=== PATIENT | female | born 2000 | race Caucasian/White ===

== ENCOUNTER 2022-12-15 14:02 | Outpatient (CLI) | payer OTHER, SELFPAY ==
--- NOTE | 2022-12-15 14:00 | CRLHL7_ITS ---
For Patients: As a result of the Century Cures Act, medical imaging exams and procedure reports are released immediately into your electronic medical record. You may view this report before your referring provider. If you have questions, please contact your health care provider. INDICATION: Third trimester scan, evaluate growth. UTERINE SIZE DISCREPANCY COMPARISON: none TECHNIQUE: Real time fonseca scale imaging of the fetus was performed. FINDINGS: Sonographic imaging demonstrates a single living intrauterine gestation. Fetus demonstrates a regular cardiac rate of 144 beats per minute. Fetus has a vertex position. The placenta lies posterior. Amniotic fluid volume appears normal and there is a single deepest vertical pocket: 3.3 cm. The estimated weight is 1867gm which lies at the 65th %. BPD 54th percentile. HC 38th percentile. AC 85th percentile. FL 29th percentile. The HC/AC ratio measures 1.02 range (0.96-1.15). IMPRESSION: Sonographic gestational age 31 weeks 5 days and sonographic due date 02/11/2023. Good correlation with dates. Estimated weight 65th percentile. Abdominal circumference 85th percentile. Dictated by Ibrahima Aquino MD @ 12/16/2022 11:01:56 AM (Electronically Signed)
== END 2022-12-15 14:03 | disposition home or self-care (01) ==
LOC: US 14:03
PROVIDERS: Visit Provider Registered Nurse
DX: O99.213 Obesity complicating pregnancy, third trimester (principal); Z3A.31 31 weeks gestation of pregnancy
CPT/HCPCS: 76816

== ENCOUNTER 2023-01-07 14:09 | Outpatient (CLI) | payer OTHER, SELFPAY | END 2023-01-07 14:10 | disposition home or self-care (01) | LOC: NFLDREF 14:10 | PROVIDERS: Visit Provider Obstetrics & Gynecology | DX: F19.91 Other psychoactive substance use, unspecified, in remission (principal) | CPT/HCPCS: 80306 ==

== ENCOUNTER 2023-01-16 15:14 | Outpatient (CLI) | payer OTHER, SELFPAY ==
[2023-01-17 17:46] LABS: Strep B DNA Probe POSITIVE (Negative)
[2023-01-17 17:47] LABS: Strep B Pen/Amox Allergy No
== END 2023-01-16 15:15 | disposition home or self-care (01) ==
LOC: NFLDREF 15:14
PROVIDERS: Visit Provider Obstetrics & Gynecology
DX: O99.213 Obesity complicating pregnancy, third trimester (principal); Z3A.35 35 weeks gestation of pregnancy
CPT/HCPCS: 76816; 76819; 80175; 87081; 87653

== ENCOUNTER 2023-02-09 10:18 | Inpatient (IN) | payer OTHER, SELFPAY ==
[2023-02-09] VITALS (29 sets, daily range): BP systolic 94–125; BP diastolic 47–74; PULSE 48–96; RESP 16–20; TEMP 36.4–37; O2SAT 95–100
[2023-02-09 11:49] LABS: Basophils Absolute Auto 0.03 K/uL (0.00-0.30); Basophils Percent Auto 0.4 % (0.0-3.0); Eosinophils Percent Auto 1.2 % (0.0-7.0); Hematocrit 39.3 % (33.0-51.0); Hemoglobin* 13.5 gm/dL (12.0-16.0); Immature Granulocytes Abs Auto 0.01 K/uL (0.00-0.30); Immature Granulocytes Pct Auto 0.1 %; Lymphocytes Percent Auto 17.6 % (20-44); Mean Corpuscular HGB Conc 34 gm/dL (32-36); Mean Corpuscular Hemoglobin 30 pg (26-34); Mean Corpuscular Volume 88 fL (80-100); Monocytes Percent Auto 6.5 % (0.0-11.0); Neutrophils Percent Auto 74.2 % (42.0-72.0); Platelet Count* 282 K/uL (140-440); RDW Coefficient of Variation % 12.7 % (11.5-15.5); Red Blood Count 4.47 m/uL (4.00-5.20); White Blood Count* 8.48 K/uL (4.50-11.00)
[2023-02-09 11:51] LABS: Slide Review Reflex No
[2023-02-09] MEDS: ONDANSETRON 2 MG/ML inj 4 MG IV (12:17)
[2023-02-09] MEDS: CEFAZOLIN 1 GM inj 3 GM IVP (12:29)
--- NOTE | 2023-02-09 12:49 | P.NB_ITS ---
Nerve Block Nerve Block Time Seen by Provider: 13:53 Date Seen: 02/09/23 Type of block requested by surgeon for post-operative analgesia: TAP Side: bilateral Time out performed: Yes Verification of patient name: Yes Verification of date of : Yes Site marking: site marked Name of person performing procedure: Franco Continuous monitoring Was continuous monitoring of O2 sat, B/P, cafeteria monitor, recorded every 15 minutes?: Yes Procedure Checklist: sterile prep, needles and gloves Ultrasound guided. Images saved: Yes Medications given in 5ml increments after negative aspiration: Marcaine %: 0.25 mL: 30 Needle gauge: 20 and Exparel mL: 10 Patient tolerated procedure well: Yes Additional comments: Needle noted adjacent to nerve Block Charges Block Charge (with Pro Fee): TAP Bilateral Use of Ultrasound Machine for Block: Yes- US Guidance/pain block
--- NOTE | 2023-02-09 12:49 | W.ANESCHARGE ---
Anesthesia Charges Start Date/Time Anesthesia Start Date: 02/09/23 Anesthesia Start Time: 12:30 Stop Date/Time Anesthesia Stop Date: 02/09/23 Anesthesia Stop Time: 14:02
--- NOTE | 2023-02-09 14:07 | W.ANESCHARGE ---
Anesthesia Charges Start Date/Time Anesthesia Start Date: 02/09/23 Anesthesia Start Time: 12:30 Stop Date/Time Anesthesia Stop Date: 02/09/23 Anesthesia Stop Time: 14:02
--- NOTE | 2023-02-09 14:07 | PM.OBPRCCS ---
Procedure Date of procedure: 02/09/23 Pre-op diagnosis: 39 1/7 weeks, HSV infection, morbid obesity Post-op diagnosis: same Procedure Done: Global Will [facility] bill your pro fee for this procedure?: Yes Blood Loss Measurement Type: QBL (389 mL) Bakri Used: No Surgeon: Lyssa Ardon MD Oyster Fisherman: Jeanette Paula MD Anesthesia type: Spinal Findings: Live-born female infant, cephalic presentation, Apgars 8 and 9, weight 6 lb 14 oz. Procedure Description: After obtaining informed consent, the patient was taken to the operating room where spinal anesthesia was obtained and found to be adequate. She was prepared and draped in the normal sterile fashion in the dorsal supine position with a leftward tilt. The external pannus retractor was utilized. A Pfannenstiel skin incision was made with a scalpel. This incision was carried down to the underlying layer of fascia with the Bovie. The fascia was incised in the midline and the incision extended laterally. The superior and inferior aspects of the fascial incision were grasped with Patricia clamps, elevated and the underlying rectus muscles dissected off sharply and with electrocautery. The rectus muscles were then in the midline. The Lee O retractor was then placed into the incision. The lower uterine segment was then incised in a transverse fashion with the scalpel. Upon entry into the uterus, clear amniotic fluid was noted. The uterine incision was extended laterally with blunt finger fractionation. The infant's head was delivered atraumatically, followed by the remainder of the infant's body. The nose and mouth were suctioned with the bulb suction. The cord was doubly clamped and cut, and the infant was handed off the field to for evaluation. The placenta was delivered spontaneously with umbilical cord traction and fundal massage. The uterus was cleared of all clots and debris. The uterine incision was reapproximated in a running locking fashion with a 0 chromic suture. A 2nd layer of the same suture was used to imbricate in horizontal fashion. The gutters were inspected and clots removed. All instruments and retractors were removed. The anterior peritoneum was reapproximated in a running fashion with a 3-0 Vicryl suture. During the peritoneal closure, the patient had a significant cough, and the omentum repeatedly extruded from the pressure. A fish retractor was used to keep the omentum from the peritoneum during the peritoneal closure. The subfascial tissues were carefully inspected and hemostasis assured. The fascia was reapproximated in a running fashion with a looped 0 Maxon suture. The subcutaneous tissues were copiously irrigated. Hemostasis was assured. The subcutaneous fat layer was reapproximated with 2 layers of running sutures of 3-0 plain gut. The skin was closed in a subcuticular fashion with 4-0 Vicryl. A silver Mepilex dressing was applied. The patient tolerated the procedure well. Sponge, lap, needle, and instrument counts were reported as correct x2. The patient was taken to the recovery room, awake, and in stable condition. She did receive 3 grams of IV Ancef preoperatively. A TAP block was administered by Anesthesia conclusion procedure. A 22 modifier should be used for this procedure due to difficulty given the patient's body habitus. Complications: None. Condition: stable Disposition: floor
[2023-02-09] MEDS: ACETAMINOPHEN 500 MG TABLET 1000 MG PO (16:44)
[2023-02-09] MEDS: LACTATED RINGERS 1000 ML 1,000 ML 125 ML IV (17:01)
[2023-02-09] MEDS: KETOROLAC 30 MG/ML inj IVP (20:41)
[2023-02-09] MEDS: ENOXAPARIN 40 MG/0.4 ML INJ SUBCUT (20:41)
[2023-02-10] VITALS (15 sets, daily range): BP systolic 105–121; BP diastolic 64–77; PULSE 54–98; RESP 16–18; TEMP 36.7–37.3; O2SAT 94–100
[2023-02-10] MEDS: KETOROLAC 30 MG/ML inj IVP ×4 (02:25→21:00)
[2023-02-10 07:31] LABS: Hemoglobin* 12.4 gm/dL (12.0-16.0)
--- NOTE | 2023-02-10 08:45 | PM.OBPNVD1 ---
OB - PN:Subj Subjective Date Seen: 02/10/23 Patient comments OB post-: no complaints, pain well controlled, tolerating diet and flatus present Shipman status: bottle (pumping and feeding expressed breastmilk) feeding status: expressed and bottle feeding Narrative: Day 1:? Vaginal Delivery at 39 and 1/7 weeks.? ?? Complications:? primary for HSV outbreak? The patient feels well.? The pain is well controlled with current medications.? She has no new complaints.? Urinary output is adequate and she is voiding without difficulty.? Has a good appetite, is tolerating a general diet, is passing flatus, and has not had a bowel movement.? Has small amount of rubra lochia.? She is ambulating well.?She is pumping at the time of rounding and her interaction is limited. Denies questions or concerns. OB - PN: Obj Exam Physical Exam: Vital signs: Temp Pulse Resp BP Pulse Ox O2 Del Method 98.8 F 58 L 18 113/65 99 Room Air 02/10/23 08:35 02/10/23 08:35 02/10/23 06:08 02/10/23 08:35 02/10/23 08:35 02/10/23 08:35 Narrative: GENERAL APPEARANCE:? normal affect, alert, no distress? MOOD:? appropriate? CHEST:? clear to auscultation and percussion? HEART:? regular rate and rhythm? ABDOMEN:? soft, non-tender the uterine fundus is U/2 and is appropriate for the stage of recovery.?Incision is coved with a dressing that is clean, dry and intact. EXTREMITIES:? normal and no edema? Urinary Catheter Management: 3-way Urethral: Cath placed during this visit: yes, but has since been removed by the nurse Reason for continuing: epidural catheter Insertion date: 02/09/23 Insertion time: 12:38 Removal date: 02/10/23 Removal time: 08:30 OB - PN: Obj Data Labs Labs: Laboratory Results - last 24 hr 02/09/23 02/10/23 11:30 06:55 WBC 8.48 RBC 4.47 Hgb 13.5 12.4 Hct 39.3 MCV 88 MCH 30 MCHC 34 RDW Coeff of Nano 12.7 Plt Count 282 Neut % (Auto) 74.2 H Lymph % (Auto) 17.6 L Carver % (Auto) 6.5 Eos % (Auto) 1.2 Baso % (Auto) 0.4 Neut # (Auto) 6.30 Lymph # (Auto) 1.50 Carver # (Auto) 0.60 Eos # (Auto) 0.10 Baso # (Auto) 0.03 Abs Immat Gran (auto) 0.01 Imm/Tot Granulo (auto) 0.1 Blood Type A Positive Antibody Screen NEGATIVE OB - PN: A/P Delivery Assessment and Plan (1) Lactating mother: Status: Acute (2) care following delivery: Status: Acute Plan day: 1 Plan: routine care Comments: Anticipate discharge tomorrow or the following day per patient preference.
[2023-02-10] MEDS: DOCUSATE SODIUM 100 MG CAPSULE PO (09:30)
[2023-02-10] MEDS: ACETAMINOPHEN 500 MG TABLET 1000 MG PO (18:09)
[2023-02-10] MEDS: ENOXAPARIN 40 MG/0.4 ML INJ SUBCUT (21:00)
[2023-02-11] MEDS: IBUPROFEN 600 MG TABLET PO ×3 (06:29→21:28)
--- NOTE | 2023-02-11 07:30 | PM.OBPNVD1 ---
OB - PN:Subj Subjective Time Seen by Provider: 07:30 Date Seen: 02/11/23 Interval history: Nita is a 22 y.o. who was admitted to L & D for primary r/t herpes infection.? She had an uncomplicated primary .? ? ? Narrative: The patient feels well.? The pain is well controlled with current medications.? She has no new complaints.? the patient has done well.? Vitals have been stable.? She has remained afebrile.? Has a good appetite, is tolerating a general diet.? She is voiding without difficulty.? She is passing gas and has not had a bowel movement.? She is ambulating and denies any dizziness.? Has Small amount of rubra lochia.? OB - PN: Obj Exam Physical Exam: Vital signs: Temp Pulse Resp BP Pulse Ox O2 Del Method 98.4 F 88 18 121/77 99 Room Air 02/10/23 23:23 02/10/23 23:23 02/10/23 23:23 02/10/23 23:23 02/10/23 23:23 02/10/23 23:23 Narrative: VSS. Afebrile GENERAL APPEARANCE: ?normal affect, alert, no distress MOOD: ?appropriate HEENT: normocephalic, neck supple, full ROM CHEST: ?Symmetrical chest wall movement. ?Normal respiratory effort. ?Clear to auscultation HEART: ?regular rate and rhythm ABDOMEN: ?soft, non-tender. Uterine fundus is firm, at Umbilicus, Midline and is appropriate for the stage of recovery. ?Bowel sounds present. EXTREMITIES: ?normal and trace edema SKIN: warm, dry. Dressing on, clean/dry/intact. No signs of infection noted. Urinary Catheter Management: 3-way Urethral: Cath placed during this visit: yes, but has since been removed by the nurse Reason for continuing: epidural catheter Insertion date: 02/09/23 Insertion time: 12:38 Removal date: 02/10/23 Removal time: 08:30 OB - PN: Obj Data Labs Labs: Laboratory Results - last 24 hr 02/10/23 06:55 Hgb 12.4 OB - PN: A/P Delivery Assessment and Plan (1) care following delivery: Status: Acute (2) Lactating mother: Status: Acute Plan day: 2 Comments: Assessment/Plan? G 1 P 1 status post uncomplicated primary .? ?? 1.? Continue route PP cares? 2.? .? May see if desired? 3.? Anticipate discharge home tomorrow.? ?
[2023-02-11 08:45] VITALS: BP 113/79; PULSE 69; RESP 16; O2SAT 95
[2023-02-11] MEDS: DOCUSATE SODIUM 100 MG CAPSULE PO (08:54)
[2023-02-11] MEDS: ACETAMINOPHEN 500 MG TABLET 1000 MG PO (09:56)
[2023-02-11 15:57] VITALS: BP 122/82; PULSE 99; RESP 18; TEMP 36.9; O2SAT 96
--- NOTE | 2023-02-11 16:08 | PC.SOCIAL ---
Social work: Met with pt due to request of RN for support and positive tox screen for marijuana during . Met with pt who requested partner stay in room for visit. Offered pt resources for counselling and community resources, which she refused. Pt stated that she already has resources. Shared with pt that a mandatory CPS report was made due to positive tox screen for marijuana. Pt states she knew this already and had no questions. Called in verbal report to [facility] at [phone] and faxed in written CPS report to [facility].
[2023-02-11] MEDS: ENOXAPARIN 40 MG/0.4 ML INJ SUBCUT (20:47)
[2023-02-11 23:30] VITALS: BP 115/77; PULSE 76; RESP 18; TEMP 36.8; O2SAT 96
[2023-02-12] MEDS: ACETAMINOPHEN 500 MG TABLET 1000 MG PO (08:44)
[2023-02-12] MEDS: DOCUSATE SODIUM 100 MG CAPSULE PO (08:45)
[2023-02-12 08:49] VITALS: BP 122/66; PULSE 64; RESP 16; TEMP 36.6; O2SAT 99
--- NOTE | 2023-02-12 09:20 | PM.OBDSVD1 ---
DS: Providers Provider Date Seen: 02/12/23 Date of admission: 02/09/23 10:18 Primary care physician: Not a Local Provider Admitting Clinician: Lyssa Ardon MD Consults: 02/09/23 11:27 Consult to Almond Blancher [facility] [CONS] Routine Comment: Reason for Consult:: Social Service Consult 02/09/23 15:19 Consult to Almond Blancher [facility] [CONS] Routine Comment: Reason for Consult:: Substance Abuse Screening Attending Physician on discharge: Debi Murray CNM DS: Diagnosis Discharge Diagnosis (1) care following delivery: Status: Acute (2) Lactating mother: Status: Acute Problem details: May decide to formula feed only, undecided at this time (3) Bipolar disorder: Status: Acute Problem details: taking Lamictal. Followed by psychiatry in [place]. (4) ADHD (attention deficit hyperactivity disorder): Status: Acute Problem details: stopped Vyvance with . (5) Borderline personality disorder: Status: Acute (6) Obesity complicating : Status: Acute Problem details: prepregnancy BMI 51 (7) Marijuana use: Status: Acute Exam Narrative: Exam Narrative: GENERAL APPEARANCE:? normal affect, alert, no distress MOOD:? appropriate CHEST:? clear to auscultation HEART:? regular rate and rhythm ABDOMEN:? soft, non-tender the uterine fundus is at Umbilicus, Midline and is appropriate for the stage of recovery. PERINEUM:? mild edema of the perineum EXTREMITIES:? normal and +1 edema Incision: Dressing in place, clean, dry and intact. To be removed in 7 days. Const: Vital Signs, click to edit/add: Vital Signs - 24 hr 02/11/23 15:57 02/11/23 23:30 02/12/23 08:49 Temperature 98.5 F 98.3 F 97.9 F Pulse Rate [Pulse Oximeter] 99 76 64 Respiratory Rate 18 18 16 Blood Pressure [Ri ght Arm] 122/82 115/77 122/66 Pulse Oximetry 96 96 99 Oxygen Delivery Me thod Room Air Room Air Room Air Documenting provider has reviewed patient's vital signs: yes OB - DS: Summary Hospital Course Hospital Course: Nita is a 22 y.o. G 1 P 1 who was admitted to L & [facility] for primary section for active HSV. ?She had an section complicated by BMI>50. The patient feels well. ?The pain is well controlled with current medications. ?She has no new complaints. ?She is breast feeding and reports things are going well. the patient has done well.? Vitals have been stable.? She has remained afebrile.? Has a good appetite, is tolerating a general diet. ?She is voiding without difficulty.? She is passing gas and has not had a bowel movement.? She is ambulating and denies any dizziness.? Has small amount of rubra lochia. She is planning Nexplanon for prevention. She reports she has used this in the past successfully but is uncertain when she had it. Problems: None plan: Discharge home with baby. , may see if needed Hgb 12.4. Significant history of mood disorders. She has a psychiatrist she sees in [place] that she plans to return to after she discharges. They are referring her for therapy. She declines referral from us today. It is strongly encouraged she see us back at 2 weeks for a mood check in and 6 weeks. Follow up in 2 weeks and 6 weeks. Peripartum Data delivery method: Primary C/S; Non-Labored Laceration description: None Procedures: Procedures Operation Date: 02/09/23 12:15 Actual Procedure Side Surgeon p Primary Section Not Applicable Lyssa Ardon MD complications: none Gender: Female Infant Discharge Plan: Home Status at Discharge Functional status at discharge: independent ambulation Overall status at discharge: patient is progressing back to baseline Time Spent with Patient Time attestation: Total time spent providing and/or coordinating discharge services: Discharge Plan Discharge Disposition: Home, Self-Care Date of Admission: 02/09/23 10:18 Primary Care Provider: Provider,Not a Local Condition: Stable Anticipated Discharge Date/Time: 02/12/23 12:00 Discharge Medications: New acetaminophen 500 mg Tablet 1,000 mg PO Q6H PRN (Reason: pain/fever) Qty: 0 0RF docusate sodium 100 mg Capsule 100 mg PO DAILY Qty: 90 0RF ibuprofen 600 mg Tablet 600 mg PO Q6H PRN (Reason: Pain) Qty: 60 0RF oxycodone 5 mg Tablet 5 - 10 mg PO Q4H PRN (Reason: Pain) Qty: 10 0RF Continued lamotrigine [Lamictal] 200 mg tablet 200 mg PO QDAY sertraline 50 mg tablet 50 mg PO QDAY valacyclovir 500 mg tablet 1,000 mg PO BID Qty: 60 0RF aspirin 81 mg tablet,delayed release (DR/EC) 81 mg PO DAILY Qty: 30 1RF ondansetron 4 mg tablet,disintegrating 4 mg PO Q8H PRN (Reason: nausea and vomiting) Qty: 30 3RF Vitamin 27 mg iron- 800 mcg tablet 1 tab PO DAILY Discontinued valacyclovir 1 gram tablet 1,000 mg PO BID Discharge Orders: Discharge Order (Routine); Ordered 02/12/23 Ordered By: Debi Murray Patient Education: OB Over the Counter Medication Information, OB Vaginal/Breast Feeding Additional Instructions: Discharge instructions were reviewed with the patient including signs and symptoms of infection and home going medications Lifting Restrictions: 20 pounds for 6 weeks No not submerge incision under water X 2 weeks? Nothing vaginally for 6 weeks: no tampons or intercourse Do not drive while taking narcotic pain medication(s) Off Work or School for 8 weeks 2-week visit: incision check, discuss feeding concerns, review control options and screen for anxiety/depression. 6-week visit for an annual exam. consultation services are available to all mothers and babies for the first year after delivery.? To make an appointment, please call [phone]. Activity Level: Activity as Tolerated Discharge Diet: Regular Follow Up Appointments: [facility] [Provider Group] (1 week dressing removal, 2 week mood check in, and 6 week ) Forms: [employer] Info Instructions
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
== END 2023-02-12 11:40 | disposition home or self-care (01) | DRG 540 ==
PROVIDERS: Admitting Provider Obstetrics & Gynecology; Visit Provider Obstetrics & Gynecology
PROC: 10D00Z1 Extraction of Products of Conception, Low, Open Approach (ICD-10-PCS; CPT 59514; principal; 2023-02-09 12:00)
DX: O98.32 Other infections with a predominantly sexual mode of transmission complicating childbirth (principal); A60.00 Herpesviral infection of urogenital system, unspecified; O99.214 Obesity complicating childbirth; E66.01 Morbid (severe) obesity due to excess calories; O99.344 Other mental disorders complicating childbirth; F31.9 Bipolar disorder, unspecified; F90.9 Attention-deficit hyperactivity disorder, unspecified type; F60.3 Borderline personality disorder; O99.324 Drug use complicating childbirth; F12.90 Cannabis use, unspecified, uncomplicated; O99.334 Smoking (tobacco) complicating childbirth; Z91.51 Personal history of suicidal behavior; F43.10 Post-traumatic stress disorder, unspecified; Z3A.39 39 weeks gestation of pregnancy; Z37.0 Single live birth; G89.18 Other acute postprocedural pain
CPT/HCPCS: 01961; 36415; 64488; 76942; 85018; 85025; 86850; 86900; 86901; A9270; C9290; J0665; J0690; J1650; J1885; J2274; J2371; J2405; J2590; J7120